=== PATIENT | female | born 1955 | race Caucasian/White ===

== ENCOUNTER 2020-03-02 18:04 | Emergency (ER) | payer BC ==
[~2020-03-02] VITALS: Ht 157.5 cm; Wt 58.1 kg
[~2020-03-02 18:04] MED LIST: ALLO300T2 PO; BUPR300T53 PO; DAPA1TAB5 PO; DULO30CA52 PO; GABA-530 PO; HYDR-3972 PO; MORP-92 PO; OMEP20CA15 PO
[2020-03-02 18:08] VITALS: BP 151/82
--- NOTE | 2020-03-02 18:22 | NUR ---
PLACED EYE CART IN ROOM
[2020-03-02] MEDS ORDERED: proparacaine 0.5% ophthalmic drops 15ml RIGHTEYE ONE (19:10)
--- NOTE | 2020-03-02 19:47 | NUR ---
PER POISON CONTROL RINSE EYE TO NORMO PH THEN DO FAST LAMP FOR ANY DAMAGE. IF DAMAGE OR COMPLAINTS AFTER, CONSULT OPTHAMOLOGY
[2020-03-02] MEDS ORDERED: ERYT1OIN6 RIGHTEYE (20:10)
== END 2020-03-02 20:26 | disposition home or self-care (01) ==
LOC: ER 18:04
DX: H57.11 Ocular pain, right eye (principal); H53.9 Unspecified visual disturbance; Z88.8 Allergy status to other drugs, medicaments and biological substances; Z79.899 Other long term (current) drug therapy; Z98.890 Other specified postprocedural states
CPT/HCPCS: 99283